=== PATIENT | female | born 2000 | race Caucasian/White ===

== ENCOUNTER 2020-12-01 00:14 | Inpatient (IN) ==
[2020-12-01] MEDS ORDERED: SODIUM CHLORIDE 0.9% 1000ML 1,000 ML IV ONE ×2 (00:34→01:58)
--- NOTE | 2020-12-01 00:38 | Emergency Department Note ---
Impression & Plan Hyperglycemic crisis in diabetes mellitus ED Provider Note Name: BETH TRIANA Age: 20 Sex: F Arrives Via: Walk-In Informant: Patient ED Provider: Jeff Mckeon MD Chief Complaint: elevated blood sugar Impression: See Above Medical Decision Makin yr old female with elevated blood sugars. She has DMI and is not taking her insulin. BSG > 600 without acidosis. Dehydrated appearing. She has no outpatient follow up abilities and is not taking her meds thus she will need to come in for further management and evaluation. She is not septic, appears well otherwise. Clearly underlying depression though no suicidal ideation when discussed with her. I discussed case with Hospitalist who will evaluate and determine insulin management. Triage/Nursing Notes reviewed by Me Differentials:Hyperglycemia, DKA, Infection, Electrolyte imbalance, amongst other pathologies. Vital Signs: reviewed and remarkable for no significant abnormalities Interventions: saline lock, nss bolus 2L IV Labs:Reviewed and remarkable for hyperglycemia Consults:Dr Jaycee Meza Hospitalist Plan: Disposition:Hospitalization. Condition: Good History of Present Illness:20 yr old female arrives for evaluation of hyperglycemia. Patient with several months increasing blood sugars. She is DMI with diagnoses 3 years ago. She admits she has not been taking her insulin regularly the last few months and only rarely checks her blood sugar. This is secondary to feeling depressed as well as wanting to loose weight. Notes increased urination, ketones in urine and weakness. No fevers, chills, nausea, vomiting, cp, sob, syncope, abdominal pain, leg swelling, rashes, nor other symptoms. No trauma, injuries, falls. ROS: See above HPI for pertinent positives & negatives. A total of 10 systems reviewed and were otherwise negative. Past Medical History:DMI Past Surgical History:[place] Teeth Family History:Healthy Social History:From [place], currently unemployed, no drugs/tobacco. Occasional ETOH Home Medications:Insulin Allergies:NKDA Vitals:Blood Pressure: 155/100, Pulse 99, RR 18, T 36.8C, O2 97% on RA Physical Exam: GENERAL: Patient is anxious appearing and in minimal distress. EYES: No scleral icterus, unremarkable pupils. ENT: Mucous membranes moist, no nasal congestion. NECK: No masses appreciated, nomeningismus, trachea is midline. RESPIRATORY: No dyspnea. Clear to auscultation and equal bilaterally. No wheeze, no rhonchi. CARDIOVASCULAR: Regular rate and rhythm.No murmurs, rubs, gallops appreciated. GASTROINTESTINAL: Abdomen soft, non-tender, no peritonitis.Bowel sounds positive.No masses appreciated. BACK: No midline tenderness, no CVA tenderness EXTREMITIES: Normal motion all extremities, no cyanosis, no edema. NEUROLOGIC: Alert and oriented, no acute motor or sensory deficits, no focal weakness, cranial nerves grossly intact. SKIN: No rash, no jaundice, no diaphoresis. PSYCH: Appropriate GCS: 15 ED Course: Times/Reassessments: stable, no distress Jeff Mckeon MD Past Med/Surg History Social History Smoking Status: Former smoker Do You Dip or Chew Tobacco: No; Hx Alcohol Use: Yes Alcohol type: wine Hx Substance Use: No Preferred Language: Swedish Communication Ability: Effective Carbide Die Maker Required: No Beliefs That Will Affect Care: None Current Living Situation: Significant Other Other Information That Helps Us Care for You: No Feels Safe at Home: Yes Safety Concerns: Feels Safe At This Time Assistive Devices: Glasses Allergies Allergies Allergy/AdvReac Type Severity Reaction Status Date / Time No Known Allergies Allergy Unverified 12/01/20 03:06 Home Meds Home Medications Medication Instructions Recorded Confirmed insulin glargine 100 unit/mL 70 unit SUBCUT PM 07/10/20 12/01/20 subcutaneous solution (Lantus U-100 Insulin) insulin lispro 100 unit/mL 1 sliding scale dose SUBCUT 07/10/20 12/01/20 subcutaneous solution (Humalog USEASDIRECTD U-100 Insulin) Results & Data (ED) Vital Signs Vital Signs - 24 hr 12/01/20 00:17 12/01/20 02:38 Temperature 36.8 C Temperature Source Temporal Artery Scan Pulse Rate 99 H Pulse Rate [Finger] 68 Respiratory Rate 18 18 Respiratory Effort / Characteristics Non-Labored Non-Labored Spontaneous Respiratory Depth Normal Normal Respiratory Pattern Regular Blood Pressure 155/100 H Blood Pressure [Right Arm] 110/70 Blood Pressure Mean 118 Blood Pressure Mean [Right Arm] 83 Pulse Oximetry 97 98 Oxygen Delivery Method Room Air Room Air Sepsis Recent Fever Within 48 Hours No Sepsis New/Unexplained Change in Mental Status No Sepsis Action Taken by Nursing No Action Required Laboratory Data Result diagrams: 12/01/20 00:45 12/01/20 02:32 Lab Results 12/01/20 12/01/20 12/01/20 Range/Units 00:21 00:45 00:45 WBC 6.70 (4.8-10.8) K/uL RBC 5.03 (4.2-5.4) M/uL Hgb 15.1 (12.0-16.0) g/dL Hct 41.0 (37-47) % MCV 81.5 (80-100) fL MCH 30.0 (25-34) pg MCHC 36.8 H (32-36) g/dL RDW Std Deviation 38.7 (36.4-46.3) fL RDW Coeff of Kacie 13.0 (11.5-14.5) % Plt Count 242 (130-400) K/uL MPV 10.1 (7.4-10.4) fL Immature Gran % (Auto) 0.4 % Neut % (Auto) 43.8 % Lymph % (Auto) 45.5 % [place] % (Auto) 8.1 % Eos % (Auto) 1.9 % Baso % (Auto) 0.3 % Neut # (Auto) 2.93 (1.4-6.5) K/uL Lymph # (Auto) 3.05 (1.2-3.4) K/uL [place] # (Auto) 0.54 (0.11-0.59) K/uL Eos # (Auto) 0.13 (0-0.5) K/uL Baso # (Auto) 0.02 (0-0.2) K/uL Immature Gran # (Auto) 0.03 H (0.00-0.02) K/uL VBG pH 7.39 (7.36-7.41) VBG pCO2 38 (38-50) mmHg VBG pO2 50 mmHg VBG HCO3 23 mmol/L VBG O2 Saturation 82.6 % VBG Base Excess -2.0 mEq/L Barometric Pressure 733.5 mm/Hg Sodium (136-145) mmol/L Potassium (3.5-5.1) mmol/L Chloride (98-107) mmol/L Carbon Dioxide (21-32) mmol/L Anion Gap (3-11) BUN (7-18) mg/dl Creatinine (0.6-1.2) mg/dl Est Cr Clr Drug Dosing ml/min Est GFR ( Amer) ml/min Est GFR (Non-Af Amer) ml/min BUN/Creatinine Ratio (10-20) Glucose (70-99) mg/dl POC Glucose > 600 H* (70-99) mg/dl Osmolality (280-300) mOsm/kg Lactate (0.4-2.0) mmol/L Calcium (8.5-10.1) mg/dl Magnesium (1.8-2.4) mg/dl Total Bilirubin (0.2-1) mg/dl Direct Bilirubin (0-0.2) mg/dl AST (15-37) U/L ALT (12-78) U/L Alkaline Phosphatase (45-117) U/L Total Protein (6.4-8.2) gm/dl Albumin (3.4-5.0) gm/dl Globulin (2.5-4.0) gm/dl Albumin/Globulin Ratio (0.9-2) Lipase (73-393) U/L Beta-Hydroxybutyric Acd (0.2-2.81) mg/dl Specimen Hemolysis Urine Color Urine Appearance (Clear) Urine pH (4.5-7.5) Ur Specific [place] (1.000-1.030) Urine Protein (Negative) Urine Glucose (UA) (Negative) Urine Ketones (Negative) Urine Blood (Negative) Urine Nitrite (Negative) Urine Bilirubin (Negative) Urine Urobilinogen (Negative) Ur Leukocyte Esterase (Negative) Urine Test (Negative) COVID-19 Eval Order SARS-CoV-2 (PCR) (Negative) 12/01/20 12/01/20 12/01/20 Range/Units 00:45 00:47 00:47 WBC (4.8-10.8) K/uL RBC (4.2-5.4) M/uL Hgb (12.0-16.0) g/dL Hct (37-47) % MCV (80-100) fL MCH (25-34) pg MCHC (32-36) g/dL RDW Std Deviation (36.4-46.3) fL RDW Coeff of Kacie (11.5-14.5) % Plt Count (130-400) K/uL MPV (7.4-10.4) fL Immature Gran % (Auto) % Neut % (Auto) % Lymph % (Auto) % [place] % (Auto) % Eos % (Auto) % Baso % (Auto) % Neut # (Auto) (1.4-6.5) K/uL Lymph # (Auto) (1.2-3.4) K/uL [place] # (Auto) (0.11-0.59) K/uL Eos # (Auto) (0-0.5) K/uL Baso # (Auto) (0-0.2) K/uL Immature Gran # (Auto) (0.00-0.02) K/uL VBG pH (7.36-7.41) VBG pCO2 (38-50) mmHg VBG pO2 mmHg VBG HCO3 mmol/L VBG O2 Saturation % VBG Base Excess mEq/L Barometric Pressure mm/Hg Sodium 129 L (136-145) mmol/L Potassium (3.5-5.1) mmol/L Chloride 93 L (98-107) mmol/L Carbon Dioxide 21 (21-32) mmol/L Anion Gap 15.0 H (3-11) BUN 12 (7-18) mg/dl Creatinine 0.61 (0.6-1.2) mg/dl Est Cr Clr Drug Dosing 157.9 ml/min Est GFR ( Amer) > 150.0 ml/min Est GFR (Non-Af Amer) 129.6 ml/min BUN/Creatinine Ratio 19.7 (10-20) Glucose 602 H* (70-99) mg/dl POC Glucose (70-99) mg/dl Osmolality (280-300) mOsm/kg Lactate (0.4-2.0) mmol/L Calcium 8.5 (8.5-10.1) mg/dl Magnesium (1.8-2.4) mg/dl Total Bilirubin 0.6 (0.2-1) mg/dl Direct Bilirubin (0-0.2) mg/dl AST (15-37) U/L ALT 21 (12-78) U/L Alkaline Phosphatase 151 H (45-117) U/L Total Protein 7.3 (6.4-8.2) gm/dl Albumin 3.4 (3.4-5.0) gm/dl Globulin (2.5-4.0) gm/dl Albumin/Globulin Ratio (0.9-2) Lipase 118 (73-393) U/L Beta-Hydroxybutyric Acd (0.2-2.81) mg/dl Specimen Hemolysis Cancelled Urine Color Yellow Urine Appearance Clear (Clear) Urine pH 5.0 (4.5-7.5) Ur Specific [place] 1.032 H (1.000-1.030) Urine Protein Negative (Negative) Urine Glucose (UA) 3+ H (Negative) Urine Ketones 3+ H (Negative) Urine Blood Negative (Negative) Urine Nitrite Negative (Negative) Urine Bilirubin Negative (Negative) Urine Urobilinogen Negative (Negative) Ur Leukocyte Esterase Negative (Negative) Urine Test Negative (Negative) COVID-19 Eval Order SARS-CoV-2 (PCR) (Negative) 12/01/20 12/01/20 12/01/20 Range/Units 02:17 02:17 02:32 WBC (4.8-10.8) K/uL RBC (4.2-5.4) M/uL Hgb (12.0-16.0) g/dL Hct (37-47) % MCV (80-100) fL MCH (25-34) pg MCHC (32-36) g/dL RDW Std Deviation (36.4-46.3) fL RDW Coeff of Kacie (11.5-14.5) % Plt Count (130-400) K/uL MPV (7.4-10.4) fL Immature Gran % (Auto) % Neut % (Auto) % Lymph % (Auto) % [place] % (Auto) % Eos % (Auto) % Baso % (Auto) % Neut # (Auto) (1.4-6.5) K/uL Lymph # (Auto) (1.2-3.4) K/uL [place] # (Auto) (0.11-0.59) K/uL Eos # (Auto) (0-0.5) K/uL Baso # (Auto) (0-0.2) K/uL Immature Gran # (Auto) (0.00-0.02) K/uL VBG pH (7.36-7.41) VBG pCO2 (38-50) mmHg VBG pO2 mmHg VBG HCO3 mmol/L VBG O2 Saturation % VBG Base Excess mEq/L Barometric Pressure mm/Hg Sodium (136-145) mmol/L Potassium (3.5-5.1) mmol/L Chloride (98-107) mmol/L Carbon Dioxide (21-32) mmol/L Anion Gap (3-11) BUN (7-18) mg/dl Creatinine (0.6-1.2) mg/dl Est Cr Clr Drug Dosing ml/min Est GFR ( Amer) ml/min Est GFR (Non-Af Amer) ml/min BUN/Creatinine Ratio (10-20) Glucose (70-99) mg/dl POC Glucose (70-99) mg/dl Osmolality (280-300) mOsm/kg Lactate (0.4-2.0) mmol/L Calcium (8.5-10.1) mg/dl Magnesium (1.8-2.4) mg/dl Total Bilirubin (0.2-1) mg/dl Direct Bilirubin (0-0.2) mg/dl AST (15-37) U/L ALT (12-78) U/L Alkaline Phosphatase (45-117) U/L Total Protein (6.4-8.2) gm/dl Albumin (3.4-5.0) gm/dl Globulin (2.5-4.0) gm/dl Albumin/Globulin Ratio (0.9-2) Lipase (73-393) U/L Beta-Hydroxybutyric Acd (0.2-2.81) mg/dl Specimen Hemolysis Urine Color Urine Appearance (Clear) Urine pH (4.5-7.5) Ur Specific [place] (1.000-1.030) Urine Protein (Negative) Urine Glucose (UA) (Negative) Urine Ketones (Negative) Urine Blood (Negative) Urine Nitrite (Negative) Urine Bilirubin (Negative) Urine Urobilinogen (Negative) Ur Leukocyte Esterase (Negative) Urine Test (Negative) COVID-19 Eval Order Covid19 at [facility] SARS-CoV-2 (PCR) NEGATIVE (Negative) 12/01/20 12/01/20 Range/Units 02:32 02:32 WBC (4.8-10.8) K/uL RBC (4.2-5.4) M/uL Hgb (12.0-16.0) g/dL Hct (37-47) % MCV (80-100) fL MCH (25-34) pg MCHC (32-36) g/dL RDW Std Deviation (36.4-46.3) fL RDW Coeff of Kacie (11.5-14.5) % Plt Count (130-400) K/uL MPV (7.4-10.4) fL Immature Gran % (Auto) % Neut % (Auto) % Lymph % (Auto) % [place] % (Auto) % Eos % (Auto) % Baso % (Auto) % Neut # (Auto) (1.4-6.5) K/uL Lymph # (Auto) (1.2-3.4) K/uL [place] # (Auto) (0.11-0.59) K/uL Eos # (Auto) (0-0.5) K/uL Baso # (Auto) (0-0.2) K/uL Immature Gran # (Auto) (0.00-0.02) K/uL VBG pH (7.36-7.41) VBG pCO2 (38-50) mmHg VBG pO2 mmHg VBG HCO3 mmol/L VBG O2 Saturation % VBG Base Excess mEq/L Barometric Pressure mm/Hg Sodium 140 D (136-145) mmol/L Potassium 3.7 (3.5-5.1) mmol/L Chloride 105 (98-107) mmol/L Carbon Dioxide TNP (21-32) mmol/L Anion Gap TNP (3-11) BUN 11 (7-18) mg/dl Creatinine 0.54 L (0.6-1.2) mg/dl Est Cr Clr Drug Dosing 178.4 ml/min Est GFR ( Amer) > 150.0 ml/min Est GFR (Non-Af Amer) 134.9 ml/min BUN/Creatinine Ratio 19.7 (10-20) Glucose 414 H* (70-99) mg/dl POC Glucose (70-99) mg/dl Osmolality 301 H (280-300) mOsm/kg Lactate (0.4-2.0) mmol/L Calcium 8.8 (8.5-10.1) mg/dl Magnesium 1.7 L (1.8-2.4) mg/dl Total Bilirubin 0.3 (0.2-1) mg/dl Direct Bilirubin < 0.1 (0-0.2) mg/dl AST 10 L (15-37) U/L ALT 18 (12-78) U/L Alkaline Phosphatase 121 H (45-117) U/L Total Protein 6.3 L (6.4-8.2) gm/dl Albumin 3.1 L (3.4-5.0) gm/dl Globulin 3.2 (2.5-4.0) gm/dl Albumin/Globulin Ratio 1.0 (0.9-2) Lipase (73-393) U/L Beta-Hydroxybutyric Acd 53.70 H (0.2-2.81) mg/dl Specimen Hemolysis Urine Color Urine Appearance (Clear) Urine pH (4.5-7.5) Ur Specific [place] (1.000-1.030) Urine Protein (Negative) Urine Glucose (UA) (Negative) Urine Ketones (Negative) Urine Blood (Negative) Urine Nitrite (Negative) Urine Bilirubin (Negative) Urine Urobilinogen (Negative) Ur Leukocyte Esterase (Negative) Urine Test (Negative) COVID-19 Eval Order SARS-CoV-2 (PCR) (Negative) Administered Medications Sodium Chloride (Nss 1000ml) 1,000 mls @ 200 mls/hr IV .Q5H STA Stop: 12/01/20 07:54 Last Infusion: 12/01/20 05:16 Dose: 0 mls/hr Documented by: [id number] Admin: 12/01/20 03:19 Dose: 200 mls/hr Documented by: [id number] Insulin Aspart (Insulin Aspart 100 Units/Ml 3 Ml Pen) 0 units SC ACHS ALAINA Stop: 12/31/20 05:54 Last Admin: 12/01/20 06:04 Dose: 3 units Documented by: [id number] Cosigned by: [id number] Discontinued Medications Sodium Chloride (Nss 1000ml) 1,000 mls @ 999 mls/hr IV .Q1H1M ONE Stop: 12/01/20 01:34 Last Infusion: 12/01/20 01:43 Dose: 0 mls/hr Documented by: [id number] Admin: 12/01/20 00:46 Dose: 999 mls/hr Documented by: [id number] Sodium Chloride (Nss 1000ml) 1,000 mls @ 999 mls/hr IV .Q1H1M ONE Stop: 12/01/20 02:58 Last Infusion: 12/01/20 03:17 Dose: 0 mls/hr Documented by: [id number] Admin: 12/01/20 02:05 Dose: 999 mls/hr Documented by: [id number] Magnesium Sulfate/Dextrose (Magnesium Sulfate / D5w) 1 gm in 100 mls @ 50 mls/hr IV ONE ONE Stop: 12/01/20 06:29 Last Infusion: 12/01/20 06:00 Dose: 0 mls/hr Documented by: [id number] Admin: 12/01/20 04:53 Dose: 50 mls/hr Documented by: [id number] Insulin Human Regular 3 units/ (Syringe) 3 mls @ 9 mls/min IV ONE ONE Stop: 12/01/20 04:31 Last Admin: 12/01/20 04:53 Dose: 9 mls/min Documented by: [id number] Cosigned by: [id number] Insulin Human Regular 250 (units/ Sodium Chloride) 250 mls @ 2.4 mls/hr IV .Q24H ALAINA; Protocol Stop: 12/31/20 05:14 Last Titration: 12/01/20 06:00 Dose: 0 units/hr, 0 mls/hr Documented by: [id number] Cosigned by: [id number] Titration: 12/01/20 05:43 Dose: 2.4 units/hr, 2.4 mls/hr Documented by: [id number] Cosigned by: [id number] Admin: 12/01/20 05:11 Dose: 3 units/hr, 3 mls/hr Documented by: [id number] Cosigned by: [id number] Insulin Glargine (Insulin Glargine 100 Unit/Ml Vial) 80 units SC NOW STA Stop: 12/01/20 03:09 Last Admin: 12/01/20 03:16 Dose: 80 units Documented by: [id number] Cosigned by: [id number] Potassium Chloride (Potassium Chloride Crtab 20 Meq Tabcr) 40 meq PO NOW STA Stop: 12/01/20 03:37 Last Admin: 12/01/20 03:57 Dose: 40 meq Documented by: [id number] Discharge Plan Visit Data Chief Complaint: Hyperglycemia Stated Complaint: DIABETIC ISSUE ED Provider: Jeff Mckeon Discharge Problem: Hyperglycemic crisis in diabetes mellitus Patient Disposition: Admitted As Inpatient Discharge Instructions Interventions: ED Discharge Assessment Last Done: 12/01/20 03:56
[2020-12-01 00:57] LABS: Basophils # (auto) 0.02 K/uL (0-0.2); Basophils % (auto) 0.3 %; Eosinophils # (auto) 0.13 K/uL (0-0.5); Eosinophils % (auto) 1.9 %; Hemoglobin 15.1 g/dL (12.0-16.0); Immature Granulocytes # (auto) 0.03 K/uL (0.00-0.02); Immature Granulocytes % (auto) 0.4 %; Lymphocytes # (auto) 3.05 K/uL (1.2-3.4); Lymphocytes % (auto) 45.5 %; Mean Corpuscular Hgb Conc 36.8 g/dL (32-36); Mean Corpuscular Volume 81.5 fL (80-100); Mean Platelet Volume 10.1 fL (7.4-10.4); Monocytes # (auto) 0.54 K/uL (0.11-0.59); Monocytes % (auto) 8.1 %; Neutrophils # (auto) 2.93 K/uL (1.4-6.5); Neutrophils % (auto) 43.8 %; Platelet Count 242 K/uL (130-400); RDW Standard Deviation 38.7 fL (36.4-46.3); Red Blood Count 5.03 M/uL (4.2-5.4)
[2020-12-01 01:05] LABS: Appearance Urine Clear (Clear); Bilirubin Urine Negative (Negative); Blood Urine Negative (Negative); Color Urine Yellow; Glucose Urine UA 3+ (Negative); Ketones Urine 3+ (Negative); Leukocyte Esterase Urine Negative (Negative); Nitrite Urine Negative (Negative); Protein Urine Negative (Negative); Specific Gravity Urine 1.032 (1.000-1.030); Urobilinogen Urine Negative (Negative)
[2020-12-01 01:09] LABS: Pregnancy Test, Urine Negative (Negative)
[2020-12-01 01:19] LABS: Oxygen Saturation VBG 82.6 %; pH VBG 7.39 (7.36-7.41)
[2020-12-01 01:24] LABS: Albumin Level 3.4 gm/dl (3.4-5.0); Alkaline Phosphatase 151 U/L (45-117); Bilirubin,Total 0.6 mg/dl (0.2-1); Blood Urea Nitrogen 12 mg/dl (7-18); Calcium 8.5 mg/dl (8.5-10.1); Carbon Dioxide 21 mmol/L (21-32); Chloride 93 mmol/L (98-107); Creatinine Clr Calc Pharmacy 157.9 ml/min; Est GFR (African American) > 150.0 ml/min; Est GFR (Non-African American) 129.6 ml/min; Lipase 118 U/L (73-393); Sodium 129 mmol/L (136-145); Total Protein 7.3 gm/dl (6.4-8.2)
[2020-12-01 01:57] LABS: BUN Creatinine Ratio 19.7 (10-20)
[2020-12-01 02:33] LABS: Alanine Aminotransferase 21 U/L (12-78); Glucose 602 mg/dl (70-99)
[2020-12-01] MEDS ORDERED: SODIUM CHLORIDE 0.9% 1000ML 1,000 ML IV STA (02:55)
--- NOTE | 2020-12-01 03:03 | History & Physical Report ---
Date of Service December 01, 2020 Assessment & Plan (1) Hyperglycemic crisis in diabetes mellitus: Plan: Mild DKA History DM1 Recent outpatient hemoglobin A1c from April 2020 was around 10 as per patient. Secondary to compliance GMF Basal insulin overlapping with IV insulin Update hemoglobin A1c May benefit from pharmacy glycemic consultation. Patient counseled about importance of compliance with insulin to prevent diabetic complications and future hospitalizations. May benefit from the medication pending updated hemoglobin A1c result. DVT prophylaxis. Lovenox subcu Full code Text document was generated using [employer] voice recognition software. It may contain grammatical or spelling errors. Kindly contact undersigned for clarification of any documentation item in question. History of Present Illness Chief Complaint: High sugars Primary Care Provider: NO PCP (Patient used to see Dr. Minerva Machado, [facility] [place] counselor.) History obtained from patient and records. Medical history significant for DM1. Patient diagnosed to have type I DM about 3 years ago when she was confined at [facility] for D[place]. Patient sugars usually 300 to 400s at home. She admits to struggling with compliance with insulin regimen at home. Last Lantus administration was about last month. Last Humalog administration was a few days ago. Patient feeling thirsty, increased urination and generalized weakness the last few days. Patient denies chest pain, S OB, cough, abdominal pain symptoms. Last night patient's glucometer not reading. BSG upon arrival at the ER was 600s. 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 Allergies Allergy/AdvReac Type Severity Reaction Status Date / Time No Known Allergies Allergy Unverified 12/01/20 03:06 Home Medications Medication Instructions Recorded Confirmed Type insulin glargine 100 unit/mL 70 unit SUBCUT PM 07/10/20 12/01/20 History subcutaneous solution (Lantus U-100 Insulin) insulin lispro 100 unit/mL 1 sliding scale dose SUBCUT 07/10/20 12/01/20 History subcutaneous solution (Humalog USEASDIRECTD U-100 Insulin) Past Med/Surg History Social History Smoking Status: Never smoker Preferred Language: Maori Feels Safe at Home: Yes Review of Systems Review of Systems: As per HPI, all 10 systems reviewed, all other ROS negative Physical Exam Physical Exam: GENERAL: Comfortable, pleasant, no respiratory distress SKIN: Normal color, warm HEENT: Bespectacled, [place] palpebral conjunctivae, no ptosis, dry buccal mucosa NECK : Supple, no tenderness CHEST : CTA, no tenderness HEART : RRR, no obvious murmurs ABDOMEN: Some distention, nontender EXTREMITIES : No LE swelling/tenderness, no other conspicuous deformities noted NEUROLOGIC : Coherent, no facial asymmetry, no other gross focality Results & Data Results & Data ([facility]) Vital Signs (Past 12 Hours) Vital Signs Temp Pulse Pulse Resp BP BP Pulse Ox 12/01/20 02:38 68 18 110/70 98 12/01/20 00:17 36.8 C 99 H 18 155/100 H 97 Laboratory Results Laboratory Results WBC 6.70 K/uL (4.8-10.8) 12/01/20 00:45 RBC 5.03 M/uL (4.2-5.4) 12/01/20 00:45 Hgb 15.1 g/dL (12.0-16.0) 12/01/20 00:45 Hct 41.0 % (37-47) 12/01/20 00:45 MCV 81.5 fL (80-100) 12/01/20 00:45 MCH 30.0 pg (25-34) 12/01/20 00:45 MCHC 36.8 g/dL (32-36) H 12/01/20 00:45 RDW Std Deviation 38.7 fL (36.4-46.3) 12/01/20 00:45 RDW Coeff of Kacie 13.0 % (11.5-14.5) 12/01/20 00:45 Plt Count 242 K/uL (130-400) 12/01/20 00:45 MPV 10.1 fL (7.4-10.4) 12/01/20 00:45 Immature Gran % (Auto) 0.4 % 12/01/20 00:45 Neut % (Auto) 43.8 % 12/01/20 00:45 Lymph % (Auto) 45.5 % 12/01/20 00:45 [place] % (Auto) 8.1 % 12/01/20 00:45 Eos % (Auto) 1.9 % 12/01/20 00:45 Baso % (Auto) 0.3 % 12/01/20 00:45 Neut # (Auto) 2.93 K/uL (1.4-6.5) 12/01/20 00:45 Lymph # (Auto) 3.05 K/uL (1.2-3.4) 12/01/20 00:45 [place] # (Auto) 0.54 K/uL (0.11-0.59) 12/01/20 00:45 Eos # (Auto) 0.13 K/uL (0-0.5) 12/01/20 00:45 Baso # (Auto) 0.02 K/uL (0-0.2) 12/01/20 00:45 Immature Gran # (Auto) 0.03 K/uL (0.00-0.02) H 12/01/20 00:45 VBG pH 7.39 (7.36-7.41) 12/01/20 00:45 VBG pCO2 38 mmHg (38-50) 12/01/20 00:45 VBG pO2 50 mmHg 12/01/20 00:45 VBG HCO3 23 mmol/L 12/01/20 00:45 VBG O2 Saturation 82.6 % 12/01/20 00:45 VBG Base Excess -2.0 mEq/L 12/01/20 00:45 Barometric Pressure 733.5 mm/Hg 12/01/20 00:45 Sodium 129 mmol/L (136-145) L 12/01/20 00:45 Potassium mmol/L (3.5-5.1) 12/01/20 00:45 Chloride 93 mmol/L (98-107) L 12/01/20 00:45 Carbon Dioxide 21 mmol/L (21-32) 12/01/20 00:45 Anion Gap 15.0 (3-11) H 12/01/20 00:45 BUN 12 mg/dl (7-18) 12/01/20 00:45 Creatinine 0.61 mg/dl (0.6-1.2) 12/01/20 00:45 Est Cr Clr Drug Dosing 157.9 ml/min 12/01/20 00:45 Est GFR ( Amer) > 150.0 ml/min 12/01/20 00:45 Est GFR (Non-Af Amer) 129.6 ml/min 12/01/20 00:45 Glucose 602 mg/dl (70-99) H* 12/01/20 00:45 POC Glucose > 600 mg/dl (70-99) H* 12/01/20 00:21 Calcium 8.5 mg/dl (8.5-10.1) 12/01/20 00:45 Magnesium mg/dl (1.8-2.4) 12/01/20 00:45 Total Bilirubin 0.6 mg/dl (0.2-1) 12/01/20 00:45 Direct Bilirubin mg/dl (0-0.2) 12/01/20 00:45 AST U/L (15-37) 12/01/20 00:45 ALT 21 U/L (12-78) 12/01/20 00:45 Alkaline Phosphatase 151 U/L (45-117) H 12/01/20 00:45 Total Protein 7.3 gm/dl (6.4-8.2) 12/01/20 00:45 Albumin 3.4 gm/dl (3.4-5.0) 12/01/20 00:45 Lipase 118 U/L (73-393) 12/01/20 00:45 Specimen Hemolysis Cancelled 12/01/20 00:45 Urine Color Yellow 12/01/20 00:47 Urine Appearance Clear (Clear) 12/01/20 00:47 Urine pH 5.0 (4.5-7.5) 12/01/20 00:47 Ur Specific [place] 1.032 (1.000-1.030) H 12/01/20 00:47 Urine Protein Negative (Negative) 12/01/20 00:47 Urine Glucose (UA) 3+ (Negative) H 12/01/20 00:47 Urine Ketones 3+ (Negative) H 12/01/20 00:47 Urine Blood Negative (Negative) 12/01/20 00:47 Urine Nitrite Negative (Negative) 12/01/20 00:47 Urine Bilirubin Negative (Negative) 12/01/20 00:47 Urine Urobilinogen Negative (Negative) 12/01/20 00:47 Ur Leukocyte Esterase Negative (Negative) 12/01/20 00:47 Urine Test Negative (Negative) 12/01/20 00:47 COVID-19 Eval Order Covid19 at [facility] 12/01/20 02:17
[2020-12-01] MEDS ORDERED: INSULIN GLARGINE 100 UNIT/ML VIAL SC STA (03:08)
[2020-12-01 03:32] LABS: Aspartate Aminotransferase 10 U/L (15-37); Bilirubin Direct < 0.1 mg/dl (0-0.2); Magnesium 1.7 mg/dl (1.8-2.4); Potassium 3.7 mmol/L (3.5-5.1)
[2020-12-01] MEDS ORDERED: INSULIN PROTOCOL GOAL RANGE ONE (03:35)
[2020-12-01] MEDS ORDERED: STAT IV Infusion **Titration per Protocol STA (03:35)
[2020-12-01] MEDS ORDERED: SEVERE STRESS LEVEL ONE (03:35)
[2020-12-01] MEDS ORDERED: POTASSIUM CHLORIDE CRTAB 20 MEQ TABCR PO STA (03:36)
[2020-12-01] MEDS ORDERED: INSULIN REGULAR 250 UNITS in SODIUM CHLORIDE 0.9% 247.5 ML IV SCH ×2 (03:45→05:15)
[2020-12-01] MEDS ORDERED: PROMETHAZINE HCL 12.5 MG in SODIUM CHLORIDE 0.9% 50 ML IV PRN (04:16)
[2020-12-01] MEDS ORDERED: ACETAMINOPHEN 325 MG TAB PO PRN (04:16)
[2020-12-01] MEDS ORDERED: DEXTROSE 50% 50 ML SYRINGE IV PRN ×2 (04:30→05:50)
[2020-12-01] MEDS ORDERED: GLUCOSE 10 TABS/TUBE PO PRN ×2 (04:30→05:50)
[2020-12-01] MEDS ORDERED: GLUCOSE 40% GEL 15 GM TUBE PO PRN ×2 (04:30→05:50)
[2020-12-01] MEDS ORDERED: INSULIN HUMAN REGULAR IV BOLUS 3 UNITS in SYRINGE 0 ML IV ONE (04:30)
[2020-12-01] MEDS ORDERED: MAGNESIUM SULFATE / D5W 1 GM/100 ML BAG IV ONE (04:30)
[2020-12-01] MEDS ORDERED: CARBOHYDRATES FOR HYPOGLYCEMIA PO PRN ×2 (04:30→05:50)
[2020-12-01] MEDS ORDERED: GLUCAGON FOR INJ 1 MG VIAL IM PRN (04:30)
[2020-12-01 05:10] LABS: Sodium 140 mmol/L (136-145)
[2020-12-01 05:14] LABS: Albumin Level 3.1 gm/dl (3.4-5.0); Chloride 105 mmol/L (98-107)
[2020-12-01 05:24] LABS: Alanine Aminotransferase 18 U/L (12-78); Alkaline Phosphatase 121 U/L (45-117); BUN Creatinine Ratio 19.7 (10-20); Bilirubin,Total 0.3 mg/dl (0.2-1); Blood Urea Nitrogen 11 mg/dl (7-18); Calcium 8.8 mg/dl (8.5-10.1); Creatinine Clr Calc Pharmacy 178.4 ml/min; Est GFR (African American) > 150.0 ml/min; Est GFR (Non-African American) 134.9 ml/min; Glucose 414 mg/dl (70-99); Total Protein 6.3 gm/dl (6.4-8.2)
[2020-12-01 05:26] LABS: Globulin 3.2 gm/dl (2.5-4.0)
[2020-12-01] MEDS ORDERED: GLUCAGON FOR INJ 1 MG VIAL SQ PRN (05:50)
[2020-12-01] MEDS: INSULIN ASPART 100 UNITS/ML 3 ML PEN SC SCH ×5 (06:04→20:51)
[2020-12-01] MEDS ORDERED: INSULIN ASPART 100 UNITS/ML 3 ML PEN SC SCH (07:30)
[2020-12-01] MEDS ORDERED: LACTATED RINGER'S 1,000 ML IV ONE (08:00)
[2020-12-01 09:00] LABS: Estimated Average Glucose 381 mg/dl; Hemoglobin A1C 14.9 % (4.5-5.6)
[2020-12-01] MEDS ORDERED: PHARMACY GLYCEMIC MGMT CONSULT PRN (10:48)
--- NOTE | 2020-12-01 15:21 | Pharmacy Report ---
Pharmacy Glycemic Short Note 2 - Date of Service December 01, 2020 - Glycemic Short BSG Results (Last 24 hours): 12/01/20 12/01/20 12/01/20 00:21 00:45 02:32 Glucose 602 H* 414 H* POC Glucose > 600 H* 12/01/20 12/01/20 12/01/20 04:08 05:40 05:59 Glucose POC Glucose 345 H* 212 H 200 H 12/01/20 12/01/20 08:16 11:57 Glucose POC Glucose 202 H 224 H OUTPATIENT ANTIDIABETIC REGIMEN: * Lantus 65 units, Humalog SSI * A1c 14.9% ASSESSMENT: * Patient admitted with hyperglycemia on admission. Per notes, hx of noncompliance. Spoke with patient and she states she was taking 65 units of Lantus previously and Humalog SSI. She states when she was taking doses of insulin it was not every day. She does not know her last administration of insulin prior to admission. Per notes, she was dx with Type 1 diabetes 3 years ago. * She states she used to follow [facility] for her blood sugar management but reports its been awhile since she saw them PLAN FOR INPATIENT GLYCEMIC CONTROL: * Hold outpatient oral diabetes medications * Basal insulin * Lantus 80 units - given early this AM / hold further basal until idea of what insulin needs are * Bolus insulin * NovoLog per scale ACHS or Q6hrs while NPO * Goal Range: Low 110 mg/dL - High 140 mg/dL * Correction Factor: 30 mg/dL/unit * Nutritional / Prandial insulin per carb ratio of 1 unit per 12 grams CHO consumed PLAN FOR DISCHARGE: * tbd
--- NOTE | 2020-12-01 15:39 | Communication Note ---
Date of Service: December 01, 2020 Patient was seen and examined this morning. She did endorse that she has not been taking her insulin for the last 2 weeks. Patient reported feeling depr essed and stress in her life. Patient denies being suicidal or any thoughts of hurting herself reports she does have the insulin with her today. Hemoglobin A1c of 14.9. Pharmacy consulted for diabetic management, will consult agricultural extension educator for input as well.
[2020-12-01] MEDS ORDERED: INSULIN GLARGINE 100 UNIT/ML VIAL SC SCH (21:00)
[2020-12-02] MEDS: INSULIN ASPART 100 UNITS/ML 3 ML PEN SC SCH ×3 (00:44→08:42)
[2020-12-02 07:49] LABS: Basophils # (auto) 0.01 K/uL (0-0.2); Basophils % (auto) 0.2 %; Eosinophils # (auto) 0.17 K/uL (0-0.5); Eosinophils % (auto) 3.1 %; Hematocrit (blood only) 37.2 % (37-47); Hemoglobin 12.6 g/dL (12.0-16.0); Immature Granulocytes # (auto) 0.01 K/uL (0.00-0.02); Immature Granulocytes % (auto) 0.2 %; Lymphocytes # (auto) 2.59 K/uL (1.2-3.4); Lymphocytes % (auto) 47.5 %; Mean Corpuscular Hemoglobin 27.8 pg (25-34); Mean Corpuscular Hgb Conc 33.9 g/dL (32-36); Mean Corpuscular Volume 81.9 fL (80-100); Mean Platelet Volume 10.2 fL (7.4-10.4); Monocytes % (auto) 9.2 %; Neutrophils # (auto) 2.17 K/uL (1.4-6.5); Neutrophils % (auto) 39.8 %; Platelet Count 178 K/uL (130-400); RDW Coefficient of Variation 13.2 % (11.5-14.5); RDW Standard Deviation 39.8 fL (36.4-46.3); Red Blood Count 4.54 M/uL (4.2-5.4); White Blood Count 5.45 K/uL (4.8-10.8)
[2020-12-02 08:23] LABS: BUN Creatinine Ratio 21.5 (10-20); Blood Urea Nitrogen 9 mg/dl (7-18); Calcium 8.7 mg/dl (8.5-10.1); Carbon Dioxide 26 mmol/L (21-32); Chloride 107 mmol/L (98-107); Creatinine Clr Calc Pharmacy 229.3 ml/min; Est GFR (African American) > 150.0 ml/min; Est GFR (Non-African American) 146.5 ml/min; Glucose 206 mg/dl (70-99); Magnesium 1.5 mg/dl (1.8-2.4); Potassium 3.5 mmol/L (3.5-5.1); Sodium 139 mmol/L (136-145)
[2020-12-02] MEDS ORDERED: INSULIN GLARGINE 100 UNIT/ML VIAL SC SCH (09:00)
--- NOTE | 2020-12-02 16:11 | Discharge Summary ---
Date of Service December 02, 2020 Admission HPI Per Admitting Provider History obtained from patient and records. Medical history significant for DM1. Patient diagnosed to have type I DM about 3 years ago when she was [place] [facility] [place]. Patient sugars usually 300 to 400s at home. She admits to struggling with compliance with insulin regimen at home. Last Lantus administration was about last month. Last Humalog administration was a few days ago. Patient feeling thirsty, increased urination and generalized weakness the last few days. Patient denies chest pain, S OB, cough, abdominal pain symptoms. Last night patient's glucometer not reading. BSG upon arrival at the ER was 600s. 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 Admission Exam Per Admitting Provider GENERAL: Comfortable, pleasant, no respiratory distress SKIN: Normal color, warm HEENT: Bespectacled, Froid palpebral conjunctivae, no ptosis, dry buccal mucosa NECK : Supple, no tenderness CHEST : CTA, no tenderness HEART : RRR, no obvious murmurs ABDOMEN: Some distention, nontender EXTREMITIES : No LE swelling/tenderness, no other conspicuous deformities noted NEUROLOGIC : Coherent, no facial asymmetry, no other gross focality Principal Diagnosis Mild DKA Discharge Exam General: A&Ox3 HENT: NCAT, MMM, EOMI Eyes: PERRLA Neck: Supple, normal range of motion CVS: normal rate and rhythm Resp: b/l good breath sounds Abdomen: Soft, ND/NT Extremities: No c/c/e Neuro: face symmetric, strength grossly equal, no focal deficit Skin: warm and dry, no rashes/lesions/errythema MSK: normal ROM, no joint swelling/erythema Discharge Data Allergies Allergy/AdvReac Type Severity Reaction Status Date / Time No Known Allergies Allergy Unverified 12/01/20 03:06 Consultations 12/01/20 02:23 ED Decision to Admit Stat Hospital Course (1) Hyperglycemic crisis in diabetes mellitus: Patient is 20-year-old female who was admitted with a mild DKA. Patient was started on insulin. Hyperglycemia/DKA resolved. Patient did endorse that she was not taking her medications for the last 2 weeks due to stress/being depressed Patient denied any suicidal thoughts or any thoughts of hurting herself. Psychiatric services were offered to however patient reported that she will see her psychiatrist as an outpatient. On the day of discharge patient was doing okay. Hemodynamically patient was doing fine . Hyperglycemia resolved. Patient was discharged on her [employer] regimen of Lantus 70 units daily along with sliding scale/carb coverage. Patient was referred to endocrinology as an outpatient. Total Time Total Time Spent Total Time Spent (In Minutes): 35 Discharge Plan Discharge Items Patient Disposition: Home - Self-Care Reason For Visit: HYPERGLYCEMIC CRISIS Discharge Diagnosis: Mild DKA Activity: Resume your previous activity Non-emergency contact: Primary Care Provider Call non-emergency contact if: your symptoms worsen Follow-up/Referrals: Pamela Farmer MD [Outside Practitioners] - 12/04/20 11:20 am (Date & Time 12/04/2020 11:20 AM Provider Pamela Farmer MD Department Family [facility] ) Diet: Carb Consistent or DM2 Addtl Attending Provider Instructions: Follow up with your [facility] physician. Follow up with your psychiatrist as an outpaitent. Continue with Lantus 70 U daily and sliding scale alog with carb coverage. Pending Studies at Discharge: No Stand-Alone Forms: My Vyykn, Smoking Cessation Medications and DC Order Prescriptions: New Lantus Solostar U-100 Insulin 100 unit/mL (3 mL) insulin pen 70 unit subcut DAILY Qty: 15 RF: 0 insulin lispro [Humalog KwikPen Insulin] 100 unit/mL insulin pen 1 unit subcut ACHS Qty: 15 RF: 0 (DME) pen needle, diabetic [1st Tier Unifine Pentips] 32 gauge x 5/32" needle See Rx Instructions .Route Qty: 100 RF: 0 (DME) OneTouch Ultra Test Strip See Rx Instructions .Route Qty: 100 RF: 0 (DME) lancets [OneTouch Delica Lancets] 33 gauge misc See Rx Instructions .Route Qty: 100 RF: 0 (DME) OneTouch Verio test strips Strip See Rx Instructions .Route Qty: 100 RF: 0 Discontinued insulin lispro [Humalog U-100 Insulin] 100 unit/mL Solution 1 sliding scale dose SUBCUT USEASDIRECTD RF: 0 Discharge Orders: Discharge Order (Routine); Ordered 12/02/20 Ordered By: Bharati Daugherty Admission Data Admit Date/Time: 12/01/20 03:22 Attending Provider: Bharati Daugherty Admit Provider: Warren Champion Primary Care Provider: PCP,NO Other Providers: Warren Champion Other Interventions: Discharge Summary Assessment (RN) Last Done: 12/02/20 11:13
== END 2020-12-02 11:30 | disposition home or self-care (01) | DRG 639 ==
LOC: ED 00:14 → 3N 03:22